=== PATIENT | male | born 1985 | race Caucasian/White ===

== ENCOUNTER 2019-06-13 17:28 | Inpatient (IN) | payer OTHER ==
[~2019-06-13] VITALS: Ht 175.3 cm; Wt 84.4 kg
[2019-06-13 21:23] LABS: PLATELET COUNT 280 x10^3mcL (130-400); RED CELL DISTRIBUTION WIDTH 13.4 % (11.5-14.5)
[2019-06-13 21:36] LABS: BILIRUBIN TOTAL 0.31 mg/dL (0.20-1.00); CALCIUM 6.7 mg/dL (8.5-10.1); TOTAL PROTEIN, SERUM 6.4 g/dL (6.4-8.2)
[2019-06-13 21:42] LABS: ALBUMIN 1.7 g/dL (3.4-5.0)
[2019-06-13 21:44] LABS: CARBON DIOXIDE 9.8 mmol/L (21-32); CREATININE SERUM 10.4 mg/dL (0.7-1.3)
[2019-06-13 21:46] LABS: MONOCYTE 3 % (0-7); SEGMENTED NEUTROPHILS 79 % (37-75)
[2019-06-13 21:47] LABS: BAND NEUTROPHIL 4 % (0-10); BASOPHIL 0 % (0-2)
[2019-06-13 21:48] LABS: PLATELET MORPHOLOGY PLATELETS NORMAL; rbc morphology (normal/abnorm) NORMAL (NORMAL)
[2019-06-13 23:18] LABS: CHOLESTEROL/HDL RATIO 4.7
[2019-06-13 23:53] LABS: FREE T4 1.1 ng/dL (0.76-1.46); FREE THYROXINE INDEX 2.5 ug/dL (1.4-4.5); T4(THYROXINE) 6.1 ug/dL (4.7-13.3)
[2019-06-14] VITALS (7 sets, daily range): BP systolic 146–161; BP diastolic 87–101
[2019-06-14 00:05] LABS: UA SPECIFIC GRAVITY 1.025 (1.005-1.035); microscopic required? YES; urine erythrocyte 3+ (NEGATIVE)
[2019-06-14 00:14] LABS: T3 TOTAL 0.54 ng/mL
[2019-06-14 00:21] LABS: AMPHETAMINE QUAL UR NONE DETECTED (See below)
[2019-06-14 02:02] LABS: IRON 7 ug/dL (65-170); TOTAL IRON BINDING CAPACITY 134 ug/dL (250-450)
[2019-06-14 02:25] LABS: RED BLOOD CELLS 2.85 M/mm3 (4.52-5.90)
[2019-06-14 06:55] LABS: MAGNESIUM 1.8 mg/dL (1.8-2.4); POTASSIUM SERUM 4.8 mmol/L (3.5-5.1)
[2019-06-14 07:09] LABS: BASOPHIL % 0 % (0-2); PLATELET COUNT 270 x10^3mcL (130-400); RED CELL DISTRIBUTION WIDTH 13.6 % (11.5-14.5)
[2019-06-14 07:12] LABS: CARBON DIOXIDE 9.7 mmol/L (21-32)
[2019-06-14 07:13] LABS: CREATININE SERUM 11.4 mg/dL (0.7-1.3)
[2019-06-14 08:28] LABS: PHOSPHOROUS 9.8 mg/dL (2.5-4.9)
[2019-06-15] VITALS (9 sets, daily range): BP systolic 133–172; BP diastolic 74–103
[2019-06-15 06:02] LABS: BASOPHIL % 0.2 % (0-2); PLATELET COUNT 269 x10^3mcL (130-400); RED CELL DISTRIBUTION WIDTH 13.3 % (11.5-14.5)
[2019-06-15 06:50] LABS: CALCIUM 6.8 mg/dL (8.5-10.1); CARBON DIOXIDE 23.3 mmol/L (21-32); MAGNESIUM 1.5 mg/dL (1.8-2.4); PHOSPHOROUS 6.2 mg/dL (2.5-4.9)
[2019-06-15 10:16] LABS: POTASSIUM SERUM 2.7 mmol/L (3.5-5.1)
[2019-06-15 11:33] LABS: CREATININE SERUM 7.3 mg/dL (0.7-1.3)
[2019-06-16] VITALS (9 sets, daily range): BP systolic 142–179; BP diastolic 79–105
[2019-06-16 06:42] LABS: MAGNESIUM 1.9 mg/dL (1.8-2.4); PHOSPHOROUS 5.1 mg/dL (2.5-4.9)
[2019-06-16 06:46] LABS: CALCIUM 7.1 mg/dL (8.5-10.1); CARBON DIOXIDE 26.9 mmol/L (21-32); POTASSIUM SERUM 3.1 mmol/L (3.5-5.1)
[2019-06-16 06:48] LABS: CREATININE SERUM 5.2 mg/dL (0.7-1.3)
[2019-06-16 08:16] LABS: BASOPHIL % 0.3 % (0-2); PLATELET COUNT 285 x10^3mcL (130-400); RED CELL DISTRIBUTION WIDTH 13.4 % (11.5-14.5)
[2019-06-17 06:16] LABS: BASOPHIL % 0.6 % (0-2); PLATELET COUNT 298 x10^3mcL (130-400); RED CELL DISTRIBUTION WIDTH 13.3 % (11.5-14.5)
[2019-06-17 06:27] LABS: CALCIUM 6.6 mg/dL (8.5-10.1); CARBON DIOXIDE 26.9 mmol/L (21-32); PHOSPHOROUS 5.5 mg/dL (2.5-4.9); POTASSIUM SERUM 3.6 mmol/L (3.5-5.1)
[2019-06-17 06:29] LABS: CREATININE SERUM 6.5 mg/dL (0.7-1.3)
[2019-06-17 06:32] VITALS: BP 163/96
[2019-06-17 07:56] VITALS: BP 177/108
[2019-06-17 11:34] VITALS: BP 175/101
[2019-06-17 16:04] VITALS: BP 171/97
[2019-06-17 20:57] VITALS: BP 164/94
[2019-06-18 05:10] VITALS: BP 165/101
[2019-06-18 06:04] LABS: CALCIUM 7.4 mg/dL (8.5-10.1); CARBON DIOXIDE 32.4 mmol/L (21-32); PHOSPHOROUS 4.2 mg/dL (2.5-4.9); POTASSIUM SERUM 3.4 mmol/L (3.5-5.1)
[2019-06-18 06:05] LABS: CREATININE SERUM 4.6 mg/dL (0.7-1.3)
[2019-06-18 06:08] LABS: BASOPHIL % 0.3 % (0-2); PLATELET COUNT 342 x10^3mcL (130-400); RED CELL DISTRIBUTION WIDTH 12.9 % (11.5-14.5)
[2019-06-18 07:44] VITALS: BP 166/106
[2019-06-18 13:08] VITALS: BP 134/82
[2019-06-18 16:02] VITALS: BP 155/92
[2019-06-18 17:49] VITALS: BP 155/92
[2019-06-18 19:18] VITALS: BP 161/95
[2019-06-19 06:41] VITALS: BP 168/105
[2019-06-19 08:40] VITALS: BP 149/87
[2019-06-19 12:05] VITALS: BP 1159/88; BP 126/41; BP 159/88
[2019-06-19 16:32] VITALS: BP 162/102
[2019-06-19 20:03] VITALS: BP 176/106
[2019-06-20 01:00] VITALS: BP 155/91
[2019-06-20 05:00] VITALS: BP 171/97
[2019-06-20 06:46] LABS: BASOPHIL % 0.4 % (0-2); PLATELET COUNT 378 x10^3mcL (130-400); RED CELL DISTRIBUTION WIDTH 13.2 % (11.5-14.5)
[2019-06-20 08:18] VITALS: BP 165/100
[2019-06-20 08:41] LABS: CALCIUM 7.4 mg/dL (8.5-10.1); POTASSIUM SERUM 3.7 mmol/L (3.5-5.1)
[2019-06-20 08:53] LABS: CREATININE SERUM 6.1 mg/dL (0.7-1.3)
[2019-06-20 11:56] VITALS: BP 164/104
[2019-06-20 18:31] VITALS: BP 185/111
[2019-06-20 21:30] VITALS: BP 198/115
[2019-06-21 05:57] VITALS: BP 173/109
[2019-06-21 06:11] LABS: BASOPHIL % 0.5 % (0-2); PLATELET COUNT 365 x10^3mcL (130-400); RED CELL DISTRIBUTION WIDTH 13.3 % (11.5-14.5)
[2019-06-21 06:29] LABS: CALCIUM 7.3 mg/dL (8.5-10.1); CARBON DIOXIDE 30.3 mmol/L (21-32); POTASSIUM SERUM 3.5 mmol/L (3.5-5.1)
[2019-06-21 06:48] LABS: CREATININE SERUM 4.3 mg/dL (0.7-1.3)
[2019-06-21 07:28] VITALS: BP 157/95
[2019-06-21 11:59] VITALS: BP 151/96
[2019-06-21 16:42] VITALS: BP 154/99
[2019-06-21 20:33] VITALS: BP 175/95
[2019-06-22 05:18] VITALS: BP 169/104
[2019-06-22 06:36] LABS: BASOPHIL % 0.3 % (0-2); PLATELET COUNT 371 x10^3mcL (130-400); RED CELL DISTRIBUTION WIDTH 13.4 % (11.5-14.5)
[2019-06-22 07:35] VITALS: BP 199/117
[2019-06-22 09:09] LABS: CALCIUM 7.3 mg/dL (8.5-10.1); CARBON DIOXIDE 29.3 mmol/L (21-32); PHOSPHOROUS 3.8 mg/dL (2.5-4.9); POTASSIUM SERUM 3.8 mmol/L (3.5-5.1)
[2019-06-22 09:31] VITALS: BP 173/102
[2019-06-22 12:03] VITALS: BP 166/107
[2019-06-22 15:48] VITALS: BP 176/107
[2019-06-22 20:40] VITALS: BP 137/91
[2019-06-23 04:55] VITALS: BP 131/69
[2019-06-23 06:33] LABS: BASOPHIL % 0.7 % (0-2); PLATELET COUNT 360 x10^3mcL (130-400); RED CELL DISTRIBUTION WIDTH 13.6 % (11.5-14.5)
[2019-06-23 06:48] LABS: CALCIUM 7.3 mg/dL (8.5-10.1); CARBON DIOXIDE 29.8 mmol/L (21-32); PHOSPHOROUS 3.6 mg/dL (2.5-4.9); POTASSIUM SERUM 3.8 mmol/L (3.5-5.1)
[2019-06-23 08:34] VITALS: BP 170/101
[2019-06-23 15:48] VITALS: BP 168/100
[2019-06-23 16:48] VITALS: BP 175/104
[2019-06-23 19:30] VITALS: BP 180/109
[2019-06-24 05:13] VITALS: BP 146/94
[2019-06-24 06:31] LABS: BASOPHIL % 0.8 % (0-2); PLATELET COUNT 385 x10^3mcL (130-400); RED CELL DISTRIBUTION WIDTH 13.4 % (11.5-14.5)
[2019-06-24 06:47] LABS: CALCIUM 7.6 mg/dL (8.5-10.1); CARBON DIOXIDE 27.1 mmol/L (21-32); PHOSPHOROUS 3.7 mg/dL (2.5-4.9); POTASSIUM SERUM 4.3 mmol/L (3.5-5.1)
[2019-06-24 07:01] LABS: CREATININE SERUM 4.8 mg/dL (0.7-1.3)
[2019-06-24 07:34] VITALS: BP 154/94
[2019-06-24 10:38] VITALS: BP 161/108
[2019-06-24 12:05] VITALS: BP 170/101
[2019-06-24 17:17] VITALS: BP 185/100
[2019-06-24 17:49] VITALS: Ht 175.3 cm; Wt 84.4 kg
[2019-06-24 20:46] VITALS: BP 191/110
[2019-06-25] VITALS (9 sets, daily range): BP systolic 155–184; BP diastolic 90–106
[2019-06-25 06:04] LABS: BASOPHIL % 0.8 % (0-2); PLATELET COUNT 304 x10^3mcL (130-400); RED CELL DISTRIBUTION WIDTH 14.1 % (11.5-14.5)
[2019-06-25 06:46] LABS: CALCIUM 7.6 mg/dL (8.5-10.1); CARBON DIOXIDE 27.1 mmol/L (21-32); CREATININE SERUM 3.8 mg/dL (0.7-1.3); PHOSPHOROUS 3.4 mg/dL (2.5-4.9); POTASSIUM SERUM 3.8 mmol/L (3.5-5.1)
[2019-06-26 05:47] VITALS: BP 175/109
[2019-06-26 07:24] LABS: BASOPHIL % 0.9 % (0-2); PLATELET COUNT 322 x10^3mcL (130-400); RED CELL DISTRIBUTION WIDTH 13.9 % (11.5-14.5)
[2019-06-26 07:32] LABS: CALCIUM 7.8 mg/dL (8.5-10.1); MAGNESIUM 1.6 mg/dL (1.8-2.4); PHOSPHOROUS 4.1 mg/dL (2.5-4.9); POTASSIUM SERUM 4.2 mmol/L (3.5-5.1)
[2019-06-26 07:40] LABS: CREATININE SERUM 4.6 mg/dL (0.7-1.3)
[2019-06-26 08:30] VITALS: BP 166/95
[2019-06-26 12:20] VITALS: BP 167/100
[2019-06-26 17:52] VITALS: BP 151/96
[2019-06-26 19:25] VITALS: BP 178/111
[2019-06-27] VITALS (8 sets, daily range): BP systolic 103–191; BP diastolic 61–120
[2019-06-27 06:56] LABS: BASOPHIL % 1.4 % (0-2); PLATELET COUNT 318 x10^3mcL (130-400); RED CELL DISTRIBUTION WIDTH 14.5 % (11.5-14.5)
[2019-06-27 07:13] LABS: CALCIUM 7.6 mg/dL (8.5-10.1); CARBON DIOXIDE 26.6 mmol/L (21-32); POTASSIUM SERUM 4.8 mmol/L (3.5-5.1)
[2019-06-27 07:36] LABS: CREATININE SERUM 5.3 mg/dL (0.7-1.3)
[2019-06-28 00:21] VITALS: BP 139/76
[2019-06-28 04:51] VITALS: BP 153/89
[2019-06-28] MEDS ORDERED: COREG25 M1 PO (09:26)
[2019-06-28] MEDS ORDERED: HYDRALAZINE HCL25 MG PO (09:27)
[2019-06-28] MEDS ORDERED: FERROUS GLUCON324 M2 PO (09:27)
[2019-06-28] MEDS ORDERED: COLACE100 MG PO (09:28)
[2019-06-28] MEDS ORDERED: LIPITOR20 MG PO (09:28)
[2019-06-28] MEDS ORDERED: GLUCOTROL5 MG PO (09:29)
[2019-06-28] MEDS ORDERED: ACCU CHEK SAFE MC (09:30)
[2019-06-28 10:48] VITALS: BP 120/80
== END 2019-06-28 11:29 | disposition home or self-care (01) | DRG 871 ==
LOC: ED 17:28 → MU 22:46 → DU 22:46 → MU 06-20 11:15
PROVIDERS: Emergency Medicine; Family Medicine; Internal Medicine; Internal Medicine Nephrology; Surgery; ADMIT Internal Medicine
PROC: 02HV33Z Insertion of Infusion Device into Superior Vena Cava, Percutaneous Approach (ICD-10-PCS; principal; 2019-06-14)
PROC: B548ZZA Ultrasonography of Superior Vena Cava, Guidance (ICD-10-PCS; 2019-06-14)
PROC: 5A1D70Z Performance of Urinary Filtration, Intermittent, Less than 6 Hours Per Day (ICD-10-PCS; 2019-06-14)
PROC: 5A1D70Z Performance of Urinary Filtration, Intermittent, Less than 6 Hours Per Day (ICD-10-PCS; 2019-06-15)
PROC: 5A1D70Z Performance of Urinary Filtration, Intermittent, Less than 6 Hours Per Day (ICD-10-PCS; 2019-06-17)
PROC: 0JH63XZ Insertion of Tunneled Vascular Access Device into Chest Subcutaneous Tissue and Fascia, Percutaneous Approach (ICD-10-PCS; 2019-06-18)
PROC: 05HN33Z Insertion of Infusion Device into Left Internal Jugular Vein, Percutaneous Approach (ICD-10-PCS; 2019-06-18)
PROC: B5141ZA Fluoroscopy of Left Jugular Veins using Low Osmolar Contrast, Guidance (ICD-10-PCS; 2019-06-18)
PROC: B544ZZA Ultrasonography of Left Jugular Veins, Guidance (ICD-10-PCS; 2019-06-18)
PROC: 5A1D70Z Performance of Urinary Filtration, Intermittent, Less than 6 Hours Per Day (ICD-10-PCS; 2019-06-20)
PROC: 5A1D70Z Performance of Urinary Filtration, Intermittent, Less than 6 Hours Per Day (ICD-10-PCS; 2019-06-22)
PROC: 5A1D70Z Performance of Urinary Filtration, Intermittent, Less than 6 Hours Per Day (ICD-10-PCS; 2019-06-24)
PROC: 5A1D70Z Performance of Urinary Filtration, Intermittent, Less than 6 Hours Per Day (ICD-10-PCS; 2019-06-27)
DX: A41.9 Sepsis, unspecified organism (principal); N17.0 Acute kidney failure with tubular necrosis; J10.08 Influenza due to other identified influenza virus with other specified pneumonia; J96.01 Acute respiratory failure with hypoxia; E87.2 Acidosis; E87.1 Hypo-osmolality and hyponatremia; A08.4 Viral intestinal infection, unspecified; E83.51 Hypocalcemia; N18.9 Chronic kidney disease, unspecified; E11.21 Type 2 diabetes mellitus with diabetic nephropathy; E11.22 Type 2 diabetes mellitus with diabetic chronic kidney disease; E78.5 Hyperlipidemia, unspecified; J20.9 Acute bronchitis, unspecified; E86.0 Dehydration; E11.65 Type 2 diabetes mellitus with hyperglycemia; D63.8 Anemia in other chronic diseases classified elsewhere; E87.6 Hypokalemia; E83.42 Hypomagnesemia; E83.39 Other disorders of phosphorus metabolism; Z83.3 Family history of diabetes mellitus; Z72.89 Other problems related to lifestyle; Z87.891 Personal history of nicotine dependence; Z23 Encounter for immunization; Z79.899 Other long term (current) drug therapy
CPT/HCPCS: 82962; 84439; 86580; 87046; 87046-59; 87804; 94150; 97116-GP; A4301; G0378; J0360; J0456; J0690; J0696; J1170; J1642; J1644; J1815; J2001; J2916; J2997; J3475; J3480; J7030; J7040; J7050; J7512; J7613; J7620; Q0092